=== PATIENT | male | born 1955 | race African-American/Black ===

== ENCOUNTER 2019-09-21 17:11 | Inpatient (IN) | payer MEDICARE, OTHER ==
[~2019-09-21] VITALS: Ht 175.3 cm; Wt 60.8 kg
[2019-09-21] MEDS ORDERED: SODIUM CHLORIDE 0.9% 1,000 ML IV ONE (17:30)
[2019-09-21 18:13] LABS: CHLORIDE 111 mEq/L (98-107)
[2019-09-21 18:18] LABS: BASOPHILS % 0.4 % (0.0-2.0); HEMATOCRIT. 41.4 % (42.0-52.0); HEMOGLOBIN. 13.8 g/dL (14.0-18.0); LYMPHOCYTES % 25.6 % (20.0-50.0); MEAN CORPUSCULAR HEMOGLOBIN 33.6 pg (28.0-32.0); MEAN CORPUSCULAR VOLUME 100.7 fL (80.0-94.0); MEAN PLATELET VOLUME 8.2 fl (7.4-10.4); MONOCYTES % 9.7 % (2.0-8.0); NEUTROPHILS % 63.3 % (40.0-76.0); PLATELET 184 x1000/uL (130-400); RED BLOOD CELL COUNT 4.11 mill/uL (4.7-6.1); RED CELL DISTRIBUTION WIDTH 14.3 % (11.6-14.6)
[2019-09-21] MEDS ORDERED: ASPIRIN 325MG EC TABLET PO ONE (19:30)
[2019-09-21 20:32] LABS: CLARITY URINE CLEAR (CLEAR); COLOR URINE YELLOW (YELLOW); KETONES URINE NEGATIVE (NEGATIVE); LEUKOCYTE ESTERASE URINE NEGATIVE (NEGATIVE); NITRITE URINE NEGATIVE (NEGATIVE); OCCULT BLOOD URINE NEGATIVE (NEGATIVE); PH URINE 5.5 (4.5-8.0); PROTEIN URINE TRACE (NEGATIVE); SPECIFIC GRAVITY URINE 1.019 (1.005-1.030); UROBILINOGEN URINE 0.2 E.U./dL (0.2-1.0)
[2019-09-21] MEDS ORDERED: ONDANSETRON HCL 4MG/2ML INJ IV PRN (21:15)
[2019-09-21] MEDS: HEPARIN 5000 UNITS/ML VIAL SUBCUT SCH (21:15)
[2019-09-21] MEDS ORDERED: TRAZODONE HCL 50MG TABLET PO PRN (21:15)
[2019-09-21] MEDS ORDERED: KETOROLAC 15MG/ML VIAL IV ONE (21:45)
[2019-09-21] MEDS: ACETAMINOPHEN 325MG TABLET PO PRN (21:59)
[2019-09-22] VITALS: BP 141/89
[2019-09-22 04:00] VITALS: BP 114/84
[2019-09-22] MEDS: ACETAMINOPHEN 325MG TABLET PO PRN (04:23)
[2019-09-22 06:19] LABS: BASOPHILS % 0.5 % (0.0-2.0); HEMATOCRIT. 38.9 % (42.0-52.0); HEMOGLOBIN. 13.3 g/dL (14.0-18.0); LYMPHOCYTES % 34.5 % (20.0-50.0); MEAN CORPUSCULAR HEMOGLOBIN 33.7 pg (28.0-32.0); MEAN CORPUSCULAR VOLUME 98.9 fL (80.0-94.0); MEAN PLATELET VOLUME 8.6 fl (7.4-10.4); MONOCYTES % 11.4 % (2.0-8.0); NEUTROPHILS % 51.6 % (40.0-76.0); PLATELET 183 x1000/uL (130-400); RED BLOOD CELL COUNT 3.93 mill/uL (4.7-6.1); RED CELL DISTRIBUTION WIDTH 14.5 % (11.6-14.6)
[2019-09-22 06:28] LABS: CHLORIDE 111 mEq/L (98-107)
[2019-09-22 08:00] VITALS: BP 125/84
[2019-09-22] MEDS ORDERED: KETOROLAC 15MG/ML VIAL IV PRN (08:00)
[2019-09-22] MEDS ORDERED: KETOROLAC 60MG/2ML VIAL IM PRN (08:00)
[2019-09-22] MEDS: HEPARIN 5000 UNITS/ML VIAL SUBCUT SCH (08:31)
[2019-09-22] MEDS ORDERED: TRAMADOL 50MG TABLET PO PRN ×2 (10:15→10:30)
[2019-09-22 11:51] LABS: T4 FREE 0.87 ng/dL (0.76-1.46)
[2019-09-22 11:55] VITALS: BP 134/81
[2019-09-22 12:13] LABS: VITAMIN B12 SERUM 490 pg/mL (211-911)
[2019-09-22] MEDS ORDERED: TOPUD PO (14:15)
[2019-09-22 14:56] LABS: *AMPHETAMINES SCREEN URINE NEGATIVE (NEGATIVE); *BARBITURATES SCREEN URINE NEGATIVE (NEGATIVE)
[2019-09-22 14:57] LABS: *BENZODIAZEPINES SCREEN URINE NEGATIVE (NEGATIVE); *COCAINE SCREEN URINE NEGATIVE (NEGATIVE); METHADONE URINE SCREEN NEGATIVE (NEGATIVE); OPIATES URINE SCREEN NEGATIVE (NEGATIVE); PHENCYCLIDINE URINE SCREEN NEGATIVE (NEGATIVE)
[2019-09-22 14:58] LABS: CANNABINOID URINE SCREEN PRESUMTIVE POSITIVE (NEGATIVE)
[2019-09-22 15:18] VITALS: BP 129/84
[2019-09-22 16:00] VITALS: BP 129/84
== END 2019-09-22 19:00 | disposition home or self-care (01) | DRG 316 ==
LOC: ER 17:11 → MICUSO 21:54 → ENRESERV 21:54 → 6WST 09-22 01:04
PROVIDERS: ADMIT Internal Medicine; ATTEND Internal Medicine
DX: I95.9 Hypotension, unspecified (principal); F12.10 Cannabis abuse, uncomplicated; M47.812 Spondylosis without myelopathy or radiculopathy, cervical region
CPT/HCPCS: 36415; 71045; 80053; 80061; 80305; 81003; 82607; 83540; 83550; 83735; 83880; 84439; 84443; 84481; 84484; 85025; 85044; 93005; 93306; 93880; 93970; 96374; 97162; 97166; 99285; J1644; J1885; J2405; J7030